=== PATIENT | male | born 2000 | race African-American/Black ===

== ENCOUNTER 2023-11-16 11:11 | Emergency (ER) | payer OTHER, SELFPAY ==
[2023-11-16 11:16] VITALS: BP 146/48
[2023-11-16 11:20] VITALS: BMI 24.4
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
[2023-11-16] MEDS: PEN VK 250 MG PO (12:22)
== END 2023-11-16 12:41 | disposition home or self-care (01) ==
LOC: EMR 11:11
PROVIDERS: EMERGENCY PHYSICIAN Emergency Medicine
DX: S01.512A Laceration without foreign body of oral cavity, initial encounter (principal); S01.81XA Laceration without foreign body of other part of head, initial encounter; Y04.0XXA Assault by unarmed brawl or fight, initial encounter
CPT/HCPCS: 99282; 12011